=== PATIENT | female | born 1955 | race Caucasian/White ===

== ENCOUNTER 2016-12-08 18:20 | Inpatient (IN) | payer BC ==
[~2016-12-08] VITALS: Ht 160 cm; Wt 78.6 kg
[2016-12-08] MEDS ORDERED: CRESTOR 10MG10 MG PO (20:06)
[2016-12-08] MEDS ORDERED: CELEXA 20MG20 MG/TAB PO (20:07)
[2016-12-08] MEDS ORDERED: ZESTRIL40 MG PO (20:07)
[2016-12-08] MEDS ORDERED: LOPRESSOR 225 MG/TAB PO ×2 (20:15→20:16)
[2016-12-08] MEDS ORDERED: TAZTIA360 (20:17)
[2016-12-08] MEDS ORDERED: MULTI VITAMINS1 TAB PO (20:18)
[2016-12-08] MEDS ORDERED: [UNRECOGNIZED DRUG - OTHER] TP (20:18)
[2016-12-08] MEDS ORDERED: CALCIUM 600MG+D1 TAB PO (20:18)
[2016-12-08] MEDS ORDERED: OCUVITE1 TA1 PO (20:19)
[2016-12-08] MEDS ORDERED: VITAMINC500CH (20:20)
[2016-12-08] MEDS ORDERED: OMEGA-3 1000 MG1 CAP PO (20:20)
[2016-12-08] MEDS ORDERED: CRANBERRY FRUI405 MG PO (20:21)
[2016-12-08 21:40] LABS: PH 6 (5-8); SQUAMOUS EPITHELIAL None Seen /hpf; URINE APPEARANCE Clear; URINE BACTERIA None Seen /hpf; URINE BILIRUBIN Negative (NEGATIVE); URINE BLOOD Negative (NEGATIVE); URINE COLOR Straw; URINE GLUCOSE Negative (NEGATIVE); URINE KETONE Trace (NEGATIVE); URINE RBC 0-2 /hpf; URINE UROBILINOGEN Negative (NEGATIVE); URINE WBC 0-2 /hpf
[2016-12-08 22:34] VITALS: BP 149/67; PULSE 70; TEMP 98.2
[2016-12-09] VITALS (7 sets, daily range): BP systolic 115–148; BP diastolic 63–76; PULSE 72–106; TEMP 97.7–99.5
[2016-12-09 09:40] LABS: BASO % 0.2 % (0.0-2.0); CALCIUM 9.1 mg/dL (8.4-10.2); CREATININE, serum 0.77 mg/dL (0.52-1.25); EOS # 0.1 (0.0-0.7); EOS % 0.5 % (0-4.0); GRAN # 7.2 (1.4-6.5); GRAN % 70.2 % (42.2-75.2); HEMATOCRIT 41.1 % (37.0-47.0); HEMOGLOBIN 13.7 g/dl (12.5-16.0); LYMPH # 2.2 (1.2-3.4); LYMPH % 21.6 % (20.0-51.0); MEAN CELL VOLUME 92 fl (80.0-100.0); MEAN CORPUSCULAR HEMOGLOBIN 31 pg (27.0-31.0); MEAN CORPUSCULAR HGB CONC 33 g/dl (33.0-37.0); MEAN PLATELET VOLUME 10.7 fl (7.4-10.4); MONO # 0.7 (0.1-0.6); MONO % 6.9 % (1.7-9.3); PLATELET COUNT 245 K/mm3 (130-400); POTASSIUM 3.5 mmol/L (3.4-5.0); RED BLOOD COUNT 4.47 M/mm3 (4.10-5.30); REDCELL DISTRIBUTION WIDTH-CV 12.8 % (11.5-14.5); WHITE BLOOD COUNT 10.2 K/mm3 (4.8-10.8)
[2016-12-10 01:38] VITALS: BP 135/78; PULSE 78; TEMP 98.4
[2016-12-10 05:15] VITALS: BP 114/55; PULSE 60; TEMP 98.2
[2016-12-10 09:57] VITALS: BP 139/70; PULSE 67; TEMP 97.9
[2016-12-10 12:34] LABS: BASO % 0.4 % (0.0-2.0); EOS # 0.1 (0.0-0.7); EOS % 0.9 % (0-4.0); GRAN # 5.6 (1.4-6.5); GRAN % 72.5 % (42.2-75.2); HEMOGLOBIN 12.3 g/dl (12.5-16.0); LYMPH # 1.6 (1.2-3.4); LYMPH % 20.1 % (20.0-51.0); MEAN CELL VOLUME 90 fl (80.0-100.0); MEAN CORPUSCULAR HEMOGLOBIN 30 pg (27.0-31.0); MEAN CORPUSCULAR HGB CONC 33 g/dl (33.0-37.0); MONO # 0.4 (0.1-0.6); MONO % 5.6 % (1.7-9.3); PLATELET COUNT 247 K/mm3 (130-400); RED BLOOD COUNT 4.11 M/mm3 (4.10-5.30); REDCELL DISTRIBUTION WIDTH-CV 12.3 % (11.5-14.5); WHITE BLOOD COUNT 7.7 K/mm3 (4.8-10.8)
[2016-12-10 12:35] LABS: HEMATOCRIT 36.8 % (37.0-47.0)
[2016-12-10 12:44] LABS: CALCIUM 8.5 mg/dL (8.4-10.2); CREATININE, serum 0.69 mg/dL (0.52-1.25); MAGNESIUM 1.7 mg/dL (1.6-2.3); POTASSIUM 3.6 mmol/L (3.4-5.0)
[2016-12-10 13:57] VITALS: BP 122/56; PULSE 58; TEMP 97.7
[2016-12-10 18:46] VITALS: BP 139/70; PULSE 72; TEMP 98.5
[2016-12-10 19:52] VITALS: BP 121/57; PULSE 70; TEMP 98.6
[2016-12-11 06:00] VITALS: BP 132/55; PULSE 59; TEMP 98.2
[2016-12-11 07:46] LABS: BASO % 0.5 % (0.0-2.0); EOS # 0.1 (0.0-0.7); EOS % 2.3 % (0-4.0); GRAN # 2.5 (1.4-6.5); GRAN % 57.8 % (42.2-75.2); HEMOGLOBIN 12.1 g/dl (12.5-16.0); LYMPH # 1.2 (1.2-3.4); LYMPH % 27.5 % (20.0-51.0); MEAN CELL VOLUME 89 fl (80.0-100.0); MEAN CORPUSCULAR HEMOGLOBIN 30 pg (27.0-31.0); MEAN CORPUSCULAR HGB CONC 33 g/dl (33.0-37.0); MEAN PLATELET VOLUME 10.3 fl (7.4-10.4); MONO # 0.5 (0.1-0.6); MONO % 11.2 % (1.7-9.3); PLATELET COUNT 243 K/mm3 (130-400); RED BLOOD COUNT 4.08 M/mm3 (4.10-5.30); REDCELL DISTRIBUTION WIDTH-CV 12.4 % (11.5-14.5); WHITE BLOOD COUNT 4.4 K/mm3 (4.8-10.8)
[2016-12-11 07:48] LABS: HEMATOCRIT 36.3 % (37.0-47.0)
[2016-12-11 08:06] LABS: ALBUMIN 3.3 gm/dL (3.5-5.0); CALCIUM 8.5 mg/dL (8.4-10.2); CREATININE, serum 0.72 mg/dL (0.52-1.25); MAGNESIUM 1.8 mg/dL (1.6-2.3); PHOSPHOROUS 2.5 mg/dL (2.5-4.5); POTASSIUM 3.4 mmol/L (3.4-5.0)
[2016-12-11 09:45] VITALS: BP 142/70; PULSE 61; TEMP 98.1
[2016-12-11 13:36] VITALS: BP 144/64; PULSE 57; TEMP 97.8
[2016-12-11 17:30] VITALS: BP 176/100; PULSE 79; TEMP 98.6
[2016-12-11 21:47] VITALS: BP 146/73; PULSE 64; TEMP 98.5
[2016-12-12 02:33] VITALS: BP 128/78; PULSE 57; TEMP 99.2
[2016-12-12 05:52] VITALS: BP 113/67; PULSE 61; TEMP 98.5
[2016-12-12 07:36] LABS: ANION GAP 9 mmol/L (7-16); BLOOD UREA NITROGEN 6 mg/dL (7-17); CALCIUM 8.6 mg/dL (8.4-10.2); CARBON DIOXIDE 27 mmol/L (22-30); CHLORIDE 103 mmol/L (98-107); CREATININE, serum 0.71 mg/dL (0.52-1.25); GLUCOSE 100 mg/dL (74-106); POTASSIUM 3.2 mmol/L (3.4-5.0); SODIUM 139 mmol/L (137-145)
[2016-12-12 07:39] LABS: BASO % 0.5 % (0.0-2.0); EOS # 0.1 (0.0-0.7); GRAN # 3.7 (1.4-6.5); GRAN % 62.1 % (42.2-75.2); LYMPH # 1.5 (1.2-3.4); LYMPH % 24.5 % (20.0-51.0); MEAN CELL VOLUME 89 fl (80.0-100.0); MEAN CORPUSCULAR HGB CONC 34 g/dl (33.0-37.0); MEAN PLATELET VOLUME 10.2 fl (7.4-10.4); MONO # 0.6 (0.1-0.6); MONO % 10.6 % (1.7-9.3); PLATELET COUNT 243 K/mm3 (130-400); RED BLOOD COUNT 3.88 M/mm3 (4.10-5.30); REDCELL DISTRIBUTION WIDTH-CV 12.3 % (11.5-14.5)
[2016-12-12 07:43] LABS: HEMATOCRIT 34.7 % (37.0-47.0); HEMOGLOBIN 11.8 g/dl (12.5-16.0); MEAN CORPUSCULAR HEMOGLOBIN 30 pg (27.0-31.0)
[2016-12-12 07:49] LABS: TROPONIN-I < 0.012 ng/mL (0.000-0.034)
[2016-12-12 09:05] VITALS: BP 148/81; PULSE 56; TEMP 97.6
[2016-12-12 13:37] VITALS: BP 119/72; PULSE 49; TEMP 98
[2016-12-12 17:10] VITALS: BP 119/64; PULSE 46; TEMP 97.7
[2016-12-12 22:11] VITALS: BP 117/65; PULSE 45; TEMP 98.2
[2016-12-13 02:17] VITALS: BP 116/52; PULSE 64; TEMP 98.3
[2016-12-13 04:59] VITALS: BP 117/66; PULSE 47; TEMP 97.8
[2016-12-13 10:34] VITALS: BP 145/70; PULSE 61; TEMP 98
[2016-12-13 13:41] VITALS: BP 113/70; PULSE 51; TEMP 98.9
[2016-12-13 17:08] VITALS: BP 119/70; PULSE 55; TEMP 98.7
[2016-12-13 22:05] VITALS: BP 138/79; PULSE 63; TEMP 98.5
[2016-12-14 05:03] VITALS: BP 107/66; PULSE 52; TEMP 97.8
[2016-12-14 09:26] VITALS: BP 122/67; PULSE 53; TEMP 98.4
[2016-12-14 13:29] VITALS: BP 114/67; PULSE 52; TEMP 98.4
[2016-12-14 17:53] VITALS: BP 119/64; PULSE 60; TEMP 98
[2016-12-14 21:42] VITALS: BP 105/71; PULSE 56; TEMP 97.1
[2016-12-15 01:17] VITALS: BP 137/72; PULSE 68; TEMP 99
[2016-12-15 05:35] VITALS: BP 120/65; PULSE 76; TEMP 99
[2016-12-15 09:55] VITALS: BP 147/88; PULSE 71; TEMP 98.7
[2016-12-15] MEDS ORDERED: NORCO 325 MG-51 TAB PO (13:37)
[2016-12-15] MEDS ORDERED: FLAGYL500 MG PO (13:38)
[2016-12-15] MEDS ORDERED: CIPRO 500MG TA500 MG PO (13:38)
[2016-12-15 14:18] VITALS: BP 136/67; PULSE 65; TEMP 98.6
[2016-12-15 15:49] LABS: BASO % 0.3 % (0.0-2.0); EOS # 0.1 (0.0-0.7); EOS % 0.8 % (0-4.0); GRAN % 78.1 % (42.2-75.2); HEMATOCRIT 37.4 % (37.0-47.0); HEMOGLOBIN 12.6 g/dl (12.5-16.0); LYMPH # 0.8 (1.2-3.4); LYMPH % 10.9 % (20.0-51.0); MEAN CELL VOLUME 89 fl (80.0-100.0); MEAN CORPUSCULAR HEMOGLOBIN 30 pg (27.0-31.0); MEAN CORPUSCULAR HGB CONC 34 g/dl (33.0-37.0); MEAN PLATELET VOLUME 9.9 fl (7.4-10.4); MONO # 0.7 (0.1-0.6); MONO % 9.6 % (1.7-9.3); PLATELET COUNT 244 K/mm3 (130-400); RED BLOOD COUNT 4.21 M/mm3 (4.10-5.30); REDCELL DISTRIBUTION WIDTH-CV 12.8 % (11.5-14.5); WHITE BLOOD COUNT 7.7 K/mm3 (4.8-10.8)
[2016-12-15 15:58] LABS: ALBUMIN 3.3 gm/dL (3.5-5.0); CALCIUM 8.3 mg/dL (8.4-10.2); CREATININE, serum 0.78 mg/dL (0.52-1.25); PHOSPHOROUS 3.5 mg/dL (2.5-4.5); POTASSIUM 3.6 mmol/L (3.4-5.0)
[2016-12-15 17:12] VITALS: BP 152/73; PULSE 72; TEMP 98.6
[2016-12-15 21:56] VITALS: BP 129/71; PULSE 79; TEMP 99.7
[2016-12-16 06:00] VITALS: BP 123/61; PULSE 64; TEMP 99.3
[2016-12-16 09:32] VITALS: BP 126/74; PULSE 68; TEMP 98.9
== END 2016-12-16 13:20 | disposition home or self-care (01) | DRG 392 ==
LOC: SURG 18:20
PROVIDERS: Surgery
DX: K57.20 Diverticulitis of large intestine with perforation and abscess without bleeding (principal); I10 Essential (primary) hypertension
CPT/HCPCS: A9284; J0744; J1170; J1650; J2405; J7120; Q9967

== ENCOUNTER 2017-06-07 14:35 | Inpatient (IN) | payer BC ==
[~2017-06-07] VITALS: Ht 160 cm; Wt 74.4 kg
[~2017-06-07 14:35] MED LIST: CALCIUM 600MG+D1 TAB PO; CELEXA 20MG20 MG/TAB PO; CIPRO 500MG TA500 MG PO; CRANBERRY FRUI405 MG PO; CRESTOR 10MG10 MG PO; FLAGYL500 MG PO; LOPRESSOR 225 MG/TAB PO; MULTI VITAMINS1 TAB PO; NORCO 325 MG-51 TAB PO; OCUVITE1 TA1 PO; OMEGA-3 1000 MG1 CAP PO; TAZTIA360; VITAMINC500CH; ZESTRIL40 MG PO; [UNRECOGNIZED DRUG - OTHER] TP
[2017-06-27] VITALS (12 sets, daily range): BP systolic 98–127; BP diastolic 51–86; PULSE 54–90; TEMP 97.7–97.9
[2017-06-27] MEDS ORDERED: ALEVE 220MG220 MG PO (06:39)
[2017-06-27] MEDS ORDERED: MOTRIN 200200 MG/TAB PO (06:40)
[2017-06-27] MEDS ORDERED: TYLENOL 500MG500 MG PO (06:41)
[2017-06-28 00:17] VITALS: BP 127/55; PULSE 93; TEMP 97.8
[2017-06-28 05:57] VITALS: BP 143/79; PULSE 106; TEMP 98.4
[2017-06-28 07:10] LABS: BASO % 0.1 % (0.0-2.0); GRAN # 9.2 (1.4-6.5); GRAN % 88.9 % (42.2-75.2); HEMATOCRIT 39.8 % (37.0-47.0); HEMOGLOBIN 13.1 g/dl (12.5-16.0); LYMPH # 0.8 (1.2-3.4); LYMPH % 7.9 % (20.0-51.0); MEAN CELL VOLUME 92 fl (80.0-100.0); MEAN CORPUSCULAR HEMOGLOBIN 30 pg (27.0-31.0); MEAN CORPUSCULAR HGB CONC 33 g/dl (33.0-37.0); MEAN PLATELET VOLUME 10.3 fl (7.4-10.4); MONO # 0.2 (0.1-0.6); MONO % 2.2 % (1.7-9.3); PLATELET COUNT 253 K/mm3 (130-400); RED BLOOD COUNT 4.31 M/mm3 (4.10-5.30); REDCELL DISTRIBUTION WIDTH-CV 13.3 % (11.5-14.5)
[2017-06-28 07:19] LABS: CALCIUM 9.4 mg/dL (8.4-10.2); CREATININE, serum 0.89 mg/dL (0.52-1.25); PHOSPHOROUS 4.3 mg/dL (2.5-4.5); POTASSIUM 3.9 mmol/L (3.4-5.0)
[2017-06-28 09:06] VITALS: BP 151/76; PULSE 78; TEMP 98.3
[2017-06-28 14:45] VITALS: BP 147/85; PULSE 79; TEMP 98
[2017-06-28 18:11] VITALS: BP 145/94; PULSE 94; TEMP 98.2
[2017-06-28 22:18] VITALS: BP 138/66; PULSE 86; TEMP 97.8
[2017-06-29 05:48] VITALS: BP 135/76; PULSE 67; TEMP 98.1
[2017-06-29 07:16] LABS: HEMATOCRIT 40.6 % (37.0-47.0); HEMOGLOBIN 13.2 g/dl (12.5-16.0)
[2017-06-29 09:36] VITALS: BP 138/67; PULSE 66; TEMP 97.6
[2017-06-29 13:30] VITALS: BP 114/69; PULSE 59; TEMP 97.8
== END 2017-06-29 16:00 | disposition home or self-care (01) | DRG 330 ==
LOC: INPTSU 06-27 05:08 → SURG 06-27 05:08
PROVIDERS: Surgery; Urology
PROC: 0TJB8ZZ Inspection of Bladder, Via Natural or Artificial Opening Endoscopic (ICD-10-PCS; 2017-06-27)
PROC: 0DTN4ZZ Resection of Sigmoid Colon, Percutaneous Endoscopic Approach (ICD-10-PCS; principal; 2017-06-27 07:30)
PROC: 8E0W4CZ Robotic Assisted Procedure of Trunk Region, Percutaneous Endoscopic Approach (ICD-10-PCS; 2017-06-27 07:30)
DX: K57.20 Diverticulitis of large intestine with perforation and abscess without bleeding (principal); N32.1 Vesicointestinal fistula; I10 Essential (primary) hypertension
CPT/HCPCS: A4314; J0690; J1100; J1170; J1885; J2250; J2405; J2550; J2704; J2710; J3010; J7120